=== PATIENT | female | born 1980 | race Caucasian/White ===

== ENCOUNTER 2016-12-28 17:10 | Emergency (ER) | payer BC ==
--- NOTE | 2016-12-28 17:22 | ER Document Report ---
ED Medical Screen (RME) - General Chief Complaint: Abdominal Pain Stated Complaint: ABDOMINAL PAIN Time Seen by Provider: 12/28/16 17:21 Notes: Patient reports several days of right lower quadrant abdominal pain. She states no vaginal bleeding or symptoms. No problems with stool. She states that she did recently have a tubal reversal and is concerned that this may be the cause of the pain. She denies any nausea or vomiting. She has been eating normally. She states the pain is worse with movement. TRAVEL OUTSIDE OF THE [place] IN LAST 30 DAYS: No - Related Data Allergies/Adverse Reactions: No Known Allergies Allergy (Unverified 12/28/16 17:14) Past Medical History - Social History Chew tobacco use (# tins/day): No Drug Abuse: None Renal/ Medical History: Denies: Hx Peritoneal Dialysis Surgical Hx: Negative - Immunizations Hx Diphtheria, Pertussis, Tetanus Vaccination: No Physical Exam - Vital signs Vitals: Temp Pulse Resp BP Pulse Ox 98.6 F 101 H 16 139/87 H 99 12/28/16 17:13 12/28/16 17:13 12/28/16 17:13 12/28/16 17:13 12/28/16 17:13 Course - Vital Signs Vital signs: Temp Pulse Resp BP Pulse Ox 98.6 F 101 H 16 139/87 H 99 12/28/16 17:13 12/28/16 17:13 12/28/16 17:13 12/28/16 17:13 12/28/16 17:13
[2016-12-28 17:44] LABS: ABSOLUTE BASOPHILS # (AUTO) 0.1 10^3/uL (0.0-0.2); ABSOLUTE EOSINOPHILS # (AUTO) 0.2 10^3/uL (0.0-0.6); ABSOLUTE MONOCYTES (AUTO) 0.8 10^3/uL (0.1-1.4); ABSOLUTE NEUT (AUTO) 7.1 10^3/uL (1.7-8.2); BASOPHILS % (AUTO) 0.6 % (0-2); EOSINOPHILS % (AUTO) 1.6 % (0-6); HEMATOCRIT 37.2 % (36.0-47.0); HEMOGLOBIN 13.2 g/dL (12.0-15.5); HGB HCT DIFFERENCE 2.4; LYMPHOCYTES % (AUTO) 27.3 % (13-45); MEAN CORPUSCULAR HEMOGLOBIN 30.8 pg (27.0-33.4); MEAN CORPUSCULAR HGB CONC 35.4 g/dL (32.0-36.0); MEAN CORPUSCULAR VOLUME 87 fl (80-97); MONOCYTES % (AUTO) 7.2 % (3-13); RED BLOOD COUNT 4.27 10^6/uL (3.72-5.28); RED CELL DISTRIBUTION WIDTH 12.3 % (11.5-14.0); SEGMENTED NEUTROPHILS % (AUTO) 63.3 % (42-78); WHITE BLOOD COUNT 11.1 10^3/uL (4.0-10.5)
[2016-12-28 17:52] LABS: APPEARANCE,URINE SLIGHTLY-CLOUDY; BILIRUBIN,URINE NEGATIVE (NEGATIVE); GLUCOSE, URINE NEGATIVE (NEGATIVE); KETONES,URINE NEGATIVE (NEGATIVE); LEUKOCYTE ESTERASE,URINE NEGATIVE (NEGATIVE); NITRITE,URINE NEGATIVE (NEGATIVE); PROTEIN,URINE NEGATIVE (NEGATIVE); URINE SPECIFIC GRAVITY 1.027; UROBILINOGEN,URINE NEGATIVE mg/dL (<2.0)
[2016-12-28 18:11] LABS: ALANINE AMINOTRANSFERASE 24 U/L (9-52); ALBUMIN 3.9 g/dL (3.5-5.0); ALKALINE PHOSPHATASE 55 U/L (38-126); ANION GAP 9 (5-19); ASPARTATE AMINO TRANSFERASE 18 U/L (14-36); BILIRUBIN,DIRECT 0.3 mg/dL (0.0-0.4); BILIRUBIN,TOTAL 0.6 mg/dL (0.2-1.3); BLOOD UREA NITROGEN 9 mg/dL (7-20); CALCIUM 9.1 mg/dL (8.4-10.2); CARBON DIOXIDE 28 mmol/L (22-30); CHLORIDE 102 mmol/L (98-107); CREATININE RESULT 0.89 mg/dL (0.52-1.25); GLUCOSE 90 mg/dL (75-110); POTASSIUM 3.6 mmol/L (3.6-5.0); SODIUM 139.2 mmol/L (137-145); TOTAL PROTEIN 7.1 g/dL (6.3-8.2)
--- NOTE | 2016-12-28 18:22 | ER Document Report ---
ED GI/ - General Mode of Arrival: Ambulatory Information source: Patient TRAVEL OUTSIDE OF THE [place] IN LAST 30 DAYS: No - HPI Patient complains to provider of: Abdominal pain Onset: Other Similar symptoms previously: No Recently seen / treated by doctor: No <MEGHA LEYVA - Last Filed: 12/28/16 22:05> <SAMSON ROLBEDO - Last Filed: 12/29/16 03:23> - General Chief Complaint: Abdominal Pain Stated Complaint: ABDOMINAL PAIN Time Seen by Provider: 12/28/16 17:21 Notes: Patient is a 36 year old female presenting to the ED for right lower quadrant abdominal pain and some back pain. Patient states her pain was mild yesterday and was worse this afternoon. Patient states she had sexual intercourse this morning which caused the pain to increase. Pain is also exacerbated with movement. Patient denies any appetite changes, nausea, diarrhea, or vomiting. Patient denies any increase in pain with urination or having a bowel movement. Patient has a history of Cesarian section x2 and a tubal ligation; patient recently had a tubal reversal in July that was successful with 8 cm dilation bilaterally. Patient has no known drug allergies. Patient sees [facility]. (MEGHA LEYVA) - Related Data Allergies/Adverse Reactions: No Known Allergies Allergy (Unverified 12/28/16 17:14) Past Medical History - General Information source: Patient - Social History Smoking Status: Current Every Day Smoker Cigarette use (# per day): No Chew tobacco use (# tins/day): No Drug Abuse: None Family History: None Patient has suicidal ideation: No Patient has homicidal ideation: No Past Surgical History: Reports: Hx Section - x2, Hx Tubal Ligation - and reversal - Immunizations Hx Diphtheria, Pertussis, Tetanus Vaccination: No <MEGHA LEYVA - Last Filed: 12/28/16 22:05> Review of Systems - Review of Systems Constitutional: No symptoms reported EENT: No symptoms reported Cardiovascular: No symptoms reported Respiratory: No symptoms reported Gastrointestinal: See HPI, Abdominal pain Genitourinary: No symptoms reported Female Genitourinary: No symptoms reported Musculoskeletal: No symptoms reported Skin: No symptoms reported Hematologic/Lymphatic: No symptoms reported Neurological/Psychological: No symptoms reported -: Yes All other systems reviewed and negative <MEGHA LEYVA - Last Filed: 12/28/16 22:05> Physical Exam - Vital signs Interpretation: Normal <MEGHA LEYVA - Last Filed: 12/28/16 22:05> <SAMSON ROBLEDO - Last Filed: 12/29/16 03:23> - Vital signs Vitals: Temp Pulse Resp BP Pulse Ox 98.6 F 101 H 16 139/87 H 99 12/28/16 17:13 12/28/16 17:13 12/28/16 17:13 12/28/16 17:13 12/28/16 17:13 - Notes Notes: GENERAL: Alert, interacts well. Mild distress. HEAD: Normocephalic, atraumatic. EYES: Appear normal. Pupils equal, round, and reactive to light. ENT: Moist mucus membranes, tongue midline. NECK: Full range of motion. Supple. Trachea midline. LUNGS: Clear to auscultation bilaterally, no wheezes, rales, or rhonchi. No respiratory distress. HEART: Regular rate and rhythm. No murmurs, gallops, or rubs. ABDOMEN: Soft, RLQ abdominal tenderness with palpation. Non-distended. Normal bowel sounds. PELVIC: White discharge. Mild right-sided adnexal tenderness. EXTREMITIES: Moves all 4 extremities spontaneously. Normal strength. No edema. NEUROLOGICAL: Alert and oriented x3. Normal speech. No focal neurological deficits. GSC 15. PSYCH: Normal affect, normal mood. SKIN: Warm, dry, normal turgor. No rashes or lesions noted. (MEGHA LEYVA) Course - Laboratory Result Diagrams: 12/28/16 17:30 12/28/16 17:30 <MEHGA LEYVA - Last Filed: 12/28/16 22:05> - Laboratory Result Diagrams: 12/28/16 17:30 12/28/16 17:30 <SAMSON ROBLEDO - Last Filed: 12/29/16 03:23> - Re-evaluation Re-evalutation: 12/28/16 21:37 Presents emergency department with right-sided abdominal pain for a day and a half was subsided and then she had sex this morning and it got worse. On physical examination well-appearing nontoxic no associated nausea vomiting diarrhea abdomen is not that of acute appendicitis to the pelvic examination there is little bit of white discharge and some right-sided adnexal tenderness. Pelvic ultrasound shows an ovarian cyst without torsion and she is not . She has a follow-up with her [facility] physician as a few months ago she got her tubes reversed and is trying to get . Give her Toradol here no clinical signs or sand bobber signs of torsion. Discussed this with her and what a torsion with cause and reasons for ED return sooner she is call [facility] office tomorrow follow-up in 2-3 days and discussed reasons for ED return sooner specifically with her and her significant other at the bedside ( SAMSON ROBLEDO) - Vital Signs Vital signs: Temp Pulse Resp BP Pulse Ox 98.5 F 87 16 132/84 H 100 12/28/16 22:43 12/28/16 22:43 12/28/16 22:43 12/28/16 22:43 12/28/16 22:43 - Laboratory Laboratory results interpreted by me: 12/28/16 17:30 WBC 11.1 H Discharge <MEGHA LEYVA - Last Filed: 12/28/16 22:05> <SAMSON ROBLEDO - Last Filed: 12/29/16 03:23> - Discharge Clinical Impression: Ovarian cyst Condition: Stable Disposition: HOME, SELF-CARE Additional Instructions: Ovarian Cyst without torsion Your examination shows the presence of an ovarian cyst. This is a ball of fluid attached to the ovary. Ovarian cysts in women of child-bearing age are usually innocent. However, the cyst may cause pain when it grows or bursts. An innocent ovarian cyst will usually go away by itself. When the cyst becomes painful, you should rest. Pain medication may be required. Some women find a hot water bottle soothing. The pain usually resolves within one or two days. After menopause, an ovarian cyst may mean a tumor, and requires more aggressive evaluation -- usually surgery is recommended to remove or biopsy the cyst. A very large cyst requires evaluation at any age. Most cysts (even the innocent ones) require follow-up examination. Call the doctor or return at any time if the pain increases significantly, if you become faint, or if you experience vaginal bleeding. A follow-up appointment with your [facility] [facility] physician otherwise she is to call them in the office tomorrow and let them know you are in the ER you have an ovarian cyst and see if they can see you sooner in 2-3 days. Return for increasing worsening or new symptoms Prescriptions: Naproxen [Naprosyn 375 Mg Tablet] 375 mg PO DAILY #12 Referrals: INO CRENSHAW DO [Primary Care Provider] - Follow up as needed Scribe Attestation: 12/28/16 21:37 I personally performed the services described in the documentation reviewed the documentation recorded by my scribe in my presence and it accurately and completely records my words and actions (SAMSON ROBLEDO) Scribe Documentation - Scribe Written by Scribe:: Gerardo Painter 12/28/2016 22:04 acting as scribe for :: Eliseo <MEGHA LEYVA - Last Filed: 12/28/16 22:05>
[2016-12-28] MEDS ORDERED: KETOROLAC TROMETHAMINE 60 MG/2 ML SDV IM ONE (19:31)
[2016-12-28] MEDS ORDERED: KETOROLAC TROMETHAMINE INJ/PF 30 MG/1 ML SDV IV ONE (20:19)
--- NOTE | 2016-12-28 21:18 | RADIOLOGY REPORT (SQ) ---
EXAM DESCRIPTION: U/S NON OB PEL TV W/DOPPLER COMPLETED DATE/TIME: 12/28/2016 8:57 pm REASON FOR STUDY: right sided abdominal pain teneder on pelvic COMPARISON: None. TECHNIQUE: Dynamic and static grayscale images acquired of the pelvis via transvaginal approach and recorded on PACS. Additional selected color Doppler and spectral images recorded. LIMITATIONS: None. FINDINGS: UTERUS: Contour normal. No mass. ENDOMETRIAL STRIPE: No focal or generalized thickening. No masses. CERVIX: No nabothian cysts. RIGHT OVARY: Complex cystic appearing structure is identified measuring 5.4 x 4.5 x 4.7 cm in diamete rs. RIGHT OVARY DOPPLER: Normal arterial vascular flow without evidence for torsion. LEFT OVARY: No abnormal masses. LEFT OVARY DOPPLER: Normal arterial vascular flow without evidence for torsion. FREE FLUID: None noted. OTHER: No other significant finding. MEASUREMENTS: UTERUS: 10.5 x 6.3 x 6.0 cm ENDOMETRIAL STRIPE: 13 mm RIGHT OVARY: 6.5 x 5.9 x 4.9 cm LEFT OVARY: 4.2 x 3.4 x 2.2 sign IMPRESSION: Complex appearing cystic mass in the right adnexal presumably ovarian in etiology measur ing 5.4 x 4.5 x 4.7 cm in diameters. No other significant pelvic abnormalities were identified. Ot er findings as noted above TECHNICAL DOCUMENTATION: JOB ID: [id number]- All Rights Reserved
[2016-12-28 21:33] LABS: CHLAM PCR NOT DETECTED (NOT DETECT)
[2016-12-28 22:46] VITALS: BP 132/84
== END 2016-12-28 22:12 | disposition home or self-care (01) ==
LOC: ER 17:10
DX: N83.201 Unspecified ovarian cyst, right side (principal); R10.9 Unspecified abdominal pain; R10.31 Right lower quadrant pain; M54.9 Dorsalgia, unspecified; F17.200 Nicotine dependence, unspecified, uncomplicated
CPT/HCPCS: 99284; 36415; 87210; 85025; 81025; 80053; 81001; 87491; 87591; 76830; 93976; J1885

== ENCOUNTER 2017-09-26 13:48 | Emergency (ER) | payer BC ==
--- NOTE | 2017-09-26 15:47 | ER Document Report ---
ED General - General Chief Complaint: Abdominal Pain Stated Complaint: LEFT SIDE PAIN Time Seen by Provider: 09/26/17 15:32 Mode of Arrival: Ambulatory Information source: Patient Notes: 37-year-old female presents with complaint of bilateral lower abdominal pain that started 1 day prior to arrival. Patient describes the pain as a aching pain. Patient has had 4 positive home test. Her last menstrual period was the end of July 2017. She denies any vaginal bleeding, vaginal discharge, dysuria. Patient states she had a tubal ligation reversal one year prior to this visit. Patient admits to previous abortions while in her teens. She denies concern for STD. TRAVEL OUTSIDE OF THE [place] IN LAST 30 DAYS: No - Related Data Allergies/Adverse Reactions: No Known Allergies Allergy (Verified 09/26/17 13:49) Past Medical History - General Information source: Patient - Social History Smoking Status: Unknown if Ever Smoked Frequency of alcohol use: None Drug Abuse: None Lives with: Spouse/Significant other Family History: None Patient has suicidal ideation: No Patient has homicidal ideation: No Renal/ Medical History: Denies: Hx Peritoneal Dialysis GI Medical History: Reports: Hx Gastroesophageal Reflux Disease Past Surgical History: Reports: Hx Section - x2, Hx Tubal Ligation - and reversal - Immunizations Hx Diphtheria, Pertussis, Tetanus Vaccination: No Review of Systems - Review of Systems Notes: Patient denies fever, chills, nausea, vomiting, headache, ear pain, sore throat , cough, chest pain, shortness of breath, back pain, dysuria, hematuria, vaginal bleeding rash, SI/HI. Physical Exam - Vital signs Vitals: Temp Pulse Resp BP Pulse Ox 98.4 F 84 16 132/85 H 99 09/26/17 14:04 09/26/17 14:04 09/26/17 14:04 09/26/17 14:04 09/26/17 14:04 Interpretation: Hypertensive. No: Febrile - Notes Notes: PHYSICAL EXAMINATION: GENERAL: Well-appearing, well-nourished and in no acute distress. HEAD: Atraumatic, normocephalic. EYES: Pupils equal round and reactive to light, extraocular movements intact, conjunctiva are normal. ENT: Nares patent, oropharynx clear without exudates. Moist mucous membranes. NECK: Normal range of motion, supple without lymphadenopathy LUNGS: Breath sounds clear to auscultation bilaterally and equal. No wheezes rales or rhonchi. HEART: Regular rate and rhythm without murmurs ABDOMEN: Soft, nontender, nondistended abdomen. No guarding, no rebound. No masses appreciated. Female : Pelvic exam performed, mild white discharge, no foul odor, no vaginal bleeding, Os closed. No vaginal lacerations, no external lesions. Musculoskeletal: Normal range of motion, no pitting or edema. No cyanosis. NEUROLOGICAL: Cranial nerves grossly intact. Normal speech, normal gait. Normal sensory, motor exams PSYCH: Normal mood, normal affect. SKIN: Warm, Dry, normal turgor, no rashes or lesions noted. Course - Re-evaluation Re-evalutation: Laboratory 09/26/17 09/26/17 09/26/17 16:14 16:14 16:14 WBC 8.1 RBC 4.35 Hgb 13.1 Hct 37.5 MCV 86 MCH 30.1 MCHC 34.9 RDW 12.6 Plt Count 214 Seg Neutrophils % 62.8 Lymphocytes % 28.9 Monocytes % 6.5 Eosinophils % 1.1 Basophils % 0.7 Absolute Neutrophils 5.1 Absolute Lymphocytes 2.4 Absolute Monocytes 0.5 Absolute Eosinophils 0.1 Absolute Basophils 0.1 Beta HCG, Quant 209.36 H Total Beta HCG POSITIVE Urine Color Urine Appearance Urine pH Ur Specific [place] Urine Protein Urine Glucose (UA) Urine Ketones Urine Blood Urine Nitrite Urine Bilirubin Urine Urobilinogen Ur Leukocyte Esterase Urine WBC (Auto) Squamous Epi Cells Auto Urine Mucus (Auto) Urine Ascorbic Acid Urine HCG, Qual Epi Cells (Wet Prep) Bacteria (Wet Prep) Trichomonas (Wet Prep) Vaginal WBC Vaginal RBC Vaginal Yeast Chlamydia DNA (PCR) N.gonorrhoeae DNA (PCR) Blood Type A POSITIVE Rhogam Indicated RHOGAM NOT INDICATED 09/26/17 09/26/17 09/26/17 16:14 16:14 16:14 WBC RBC Hgb Hct MCV MCH MCHC RDW Plt Count Seg Neutrophils % Lymphocytes % Monocytes % Eosinophils % Basophils % Absolute Neutrophils Absolute Lymphocytes Absolute Monocytes Absolute Eosinophils Absolute Basophils Beta HCG, Quant Total Beta HCG Urine Color YELLOW Urine Appearance CLEAR Urine pH 6.0 Ur Specific [place] 1.015 Urine Protein NEGATIVE Urine Glucose (UA) NEGATIVE Urine Ketones NEGATIVE Urine Blood NEGATIVE Urine Nitrite NEGATIVE Urine Bilirubin NEGATIVE Urine Urobilinogen NEGATIVE Ur Leukocyte Esterase NEGATIVE Urine WBC (Auto) 2 Squamous Epi Cells Auto 1 Urine Mucus (Auto) RARE Urine Ascorbic Acid NEGATIVE Urine HCG, Qual POSITIVE H Epi Cells (Wet Prep) 3+ EPITHELIALS SEEN Bacteria (Wet Prep) 3+ BACTERIA SEEN Trichomonas (Wet Prep) NO TRICHOMONAS SEEN Vaginal WBC 2+ WBCS SEEN Vaginal RBC NO RBCS SEEN Vaginal Yeast NO YEAST SEEN Chlamydia DNA (PCR) NOT DETECTED N.gonorrhoeae DNA (PCR) NOT DETECTED Blood Type Rhogam Indicated 09/26/17 23:17 37-year-old female presents with complaint of bilateral lower abdominal pain that started 1 day prior to arrival. Patient describes the pain as a aching pain. Patient has had 4 positive home test. Her last menstrual period was the end of July 2017. She denies any vaginal bleeding, vaginal discharge, dysuria. Patient states she had a tubal ligation reversal one year prior to this visit. Patient was seen by myself upon arrival. Vital signs were reviewed. Patient is afebrile, normotensive and not hypoxic. Patient does not appear toxic or dehydrated. They are in no acute distress. Previous medical records and nursing notes reviewed. Significant findings include findings of bacterial vaginosis. Patient's beta quant is 209. Patient' s pelvic exam shows no vaginal bleeding, a closed Os and mild thin white discharge. Patient advised to return in 48 hours for repeat hCG. Flagyl prescribed. Patient feels comfortable with discharge home and understands return precautions which include worsening abdominal pain, vaginal bleeding. - Vital Signs Vital signs: Temp Pulse Resp BP Pulse Ox 98.2 F 83 16 137/90 H 100 09/26/17 18:11 09/26/17 18:11 09/26/17 14:04 09/26/17 18:11 09/26/17 18:11 - Laboratory Result Diagrams: 09/26/17 16:14 Laboratory results interpreted by me: 09/26/17 09/26/17 16:14 16:14 Beta HCG, Quant 209.36 H Urine HCG, Qual POSITIVE H Procedures - Pelvic Exam Pelvic exam Time completed: 16:09 Cultures obtained: Yes Wet prep obtained: Yes Herpes culture obtained: No POC sent to lab: Yes Foreign body removed: No Bimanual exam performed: Yes Witnessed by: nursing Discharge - Discharge Clinical Impression: Bacterial vaginosis, Abdominal pain during in first trimester Condition: Good Disposition: HOME, SELF-CARE Instructions: Abdominal Pain ([facility]), Pelvic Pain in ([facility]) Additional Instructions: Please follow-up with your [facility] [facility]. Please return in 48 hours for repeat hCG. Please return to the emergency department if you have experiencing worsening pain, vaginal bleeding. Prescriptions: Metronidazole [Flagyl 500 mg Tablet] 500 mg PO BID 7 Days #14 tablet Forms: Follow-Up Laboratory Testing Referrals: INO CRENSHAW DO [Primary Care Provider] - Follow up as needed
[2017-09-26 16:28] LABS: ABSOLUTE BASOPHILS # (AUTO) 0.1 10^3/uL (0.0-0.2); ABSOLUTE EOSINOPHILS # (AUTO) 0.1 10^3/uL (0.0-0.6); ABSOLUTE LYMPHOCYTES (AUTO) 2.4 10^3/uL (0.5-4.7); ABSOLUTE MONOCYTES (AUTO) 0.5 10^3/uL (0.1-1.4); ABSOLUTE NEUT (AUTO) 5.1 10^3/uL (1.7-8.2); BASOPHILS % (AUTO) 0.7 % (0-2); EOSINOPHILS % (AUTO) 1.1 % (0-6); HEMATOCRIT 37.5 % (36.0-47.0); HEMOGLOBIN 13.1 g/dL (12.0-15.5); LYMPHOCYTES % (AUTO) 28.9 % (13-45); MEAN CORPUSCULAR HEMOGLOBIN 30.1 pg (27.0-33.4); MEAN CORPUSCULAR HGB CONC 34.9 g/dL (32.0-36.0); MEAN CORPUSCULAR VOLUME 86 fl (80-97); MONOCYTES % (AUTO) 6.5 % (3-13); PLATELET COUNT 214 10^3/uL (150-450); RED BLOOD COUNT 4.35 10^6/uL (3.72-5.28); RED CELL DISTRIBUTION WIDTH 12.6 % (11.5-14.0); SEGMENTED NEUTROPHILS % (AUTO) 62.8 % (42-78); TOTAL CELLS COUNTED % (AUTO) 100 %; WHITE BLOOD COUNT 8.1 10^3/uL (4.0-10.5)
[2017-09-26 16:33] LABS: APPEARANCE,URINE CLEAR; BILIRUBIN,URINE NEGATIVE (NEGATIVE); COLOR,URINE YELLOW; GLUCOSE, URINE NEGATIVE (NEGATIVE); KETONES,URINE NEGATIVE (NEGATIVE); LEUKOCYTE ESTERASE,URINE NEGATIVE (NEGATIVE); NITRITE,URINE NEGATIVE (NEGATIVE); PROTEIN,URINE NEGATIVE (NEGATIVE); URINE SPECIFIC GRAVITY 1.015; UROBILINOGEN,URINE NEGATIVE mg/dL (<2.0)
[2017-09-26 17:36] LABS: BACTERIA (WET MOUNT) 3+ BACTERIA SEEN; EPITHELIALS (WET MOUNT) 3+ EPITHELIALS SEEN; RBCS (WET MOUNT) NO RBCS SEEN; T.VAGINALIS (WET MOUNT) NO TRICHOMONAS SEEN; WBCS (WET MOUNT) 2+ WBCS SEEN; YEAST (WET MOUNT) NO YEAST SEEN
[2017-09-26 17:59] LABS: CHLAM PCR NOT DETECTED (NOT DETECT); GON PCR NOT DETECTED (NOT DETECT)
[2017-09-26 18:15] VITALS: BP 137/90
== END 2017-09-26 18:15 | disposition home or self-care (01) ==
LOC: ER 13:48
DX: O23.91 Unspecified genitourinary tract infection in pregnancy, first trimester (principal); B96.89 Other specified bacterial agents as the cause of diseases classified elsewhere; O26.891 Other specified pregnancy related conditions, first trimester; R10.31 Right lower quadrant pain; R10.32 Left lower quadrant pain; Z3A.00 Weeks of gestation of pregnancy not specified; Z98.890 Other specified postprocedural states
CPT/HCPCS: 36415; 81001; 81025; 84702; 85025; 86900; 86901; 87210; 87491; 87591; 99283

== ENCOUNTER → 2017-09-28 | Outpatient (CLI) | payer BC | LOC: LAB 15:08 | PROVIDERS: ATTEND Student in an Organized Health Care Education/Training Program | DX: Z32.01 Encounter for pregnancy test, result positive (principal) | CPT/HCPCS: 84702 ==

== ENCOUNTER → 2018-04-05 | Outpatient (CLI) | payer BC ==
--- NOTE | 2018-04-05 11:38 | RADIOLOGY REPORT (SQ) ---
EXAM DESCRIPTION: LUMBAR SPINE COMPLETE COMPLETED DATE/TIME: 04/05/2018 11:11 am REASON FOR STUDY: LOW BACK PAIN M54.5 LOW BACK PAIN COMPARISON: None. NUMBER OF VIEWS: Five views including obliques. TECHNIQUE: AP, lateral, oblique, and sacral radiographic images acquired of the lumbar spine. LIMITATIONS: None. FINDINGS: MINERALIZATION: Normal. SEGMENTATION: Normal. No transitional anatomy. ALIGNMENT: Normal. VERTEBRAE: Maintained height. No fracture or worrisome bone lesion. DISCS: Preserved height. No significant osteophytes or end plate irregularity. POSTERIOR ELEMENTS: Pedicles and facets are intact. No pars defect or posterior arch defects. HARDWARE: None in the spine. PARASPINAL SOFT TISSUES: Normal. PELVIS: Intact as visualized. No fractures or worrisome bone lesions. SI joints intact. OTHER: No other significant finding. IMPRESSION: NORMAL 5 VIEW LUMBAR SPINE. TECHNICAL DOCUMENTATION: JOB ID: [id number] [employer]- All Rights Reserved Reading location - IP/workstation name: [email or web address]
== END ==
LOC: OD 10:29
PROVIDERS: ATTEND Family Medicine
DX: M54.5 Low back pain (principal)
CPT/HCPCS: 72110